=== PATIENT | female | born 1945 | race Caucasian/White ===

== ENCOUNTER → 2016-06-09 | Outpatient (CLI) | payer OTHER ==
--- NOTE | 2016-06-09 15:56 | MAMMOGRAPHY REPORT ---
BILATERAL DIGITAL SCREENING MAMMOGRAM WITH CAD: 06/09/2016 CLINICAL HISTORY: Routine screening. Patient has no complaints. TECHNIQUE: Bilateral CC, MLO, repeat left MLO and exaggerated lateral left CC views were obtained. Current study was also evaluated with a Computer Aided Detection (CAD) system. COMPARISON: Comparison is made to exams dated: 06/07/2015 mammogram, 06/05/2014 mammogram, 06/01/2013 mammogram, 05/31/2012 mammogram, 05/29/2011 mammogram, and 05/27/2010 mammogram - [facility]. BREAST COMPOSITION: There are scattered areas of fibroglandular density in both breasts. FINDINGS: There is expected architectural distortion and dystrophic calcification in the lower inner anterior left breast, at the site of prior benign excisional biopsy. There are scattered coarse an d round microcalcifications bilaterally. No new suspicious mass, architectural distortion or cluste r of suspicious microcalcifications is seen. IMPRESSION: ACR BI-RADS CATEGORY 1: NEGATIVE There is no mammographic evidence of malignancy. A 1 year screening mammogram is recommended. The p atient will receive written notification of the results. Approximately 10% of breast cancers are not detected with mammography. A negative mammographic repor t should not delay biopsy if a clinically suggestive mass is present. Luz Barnard M.D. ay/:06/09/2016 15:47:33 Mold Tooler: Sylvia WYATT(R)(M)(BD), [facility] letter sent: Normal 1/2 BI-RADS Code: ACR BI-RADS Category 1: Negative
== END | disposition home or self-care (01) ==
LOC: C.MAMM 09:48
PROVIDERS: ATTEND Family Medicine
DX: Z12.31 Encounter for screening mammogram for malignant neoplasm of breast (principal)

== ENCOUNTER → 2017-06-10 | Outpatient (CLI) | payer OTHER ==
--- NOTE | 2017-06-10 15:44 | MAMMOGRAPHY REPORT ---
BILATERAL DIGITAL SCREENING MAMMOGRAM TOMOSYNTHESIS WITH CAD: 06/10/2017 CLINICAL HISTORY: Routine screening. Patient has no complaints. TECHNIQUE: Breast tomosynthesis in addition to standard 2D mammography was performed. Current study was also evaluated with a Computer Aided Detection (CAD) system. COMPARISON: Comparison is made to exams dated: 06/09/2016 mammogram, 06/07/2015 mammogram, 06/05/2014 ma mmogram, 06/01/2013 mammogram, 05/31/2012 mammogram, and 05/29/2011 mammogram - [facility]. BREAST COMPOSITION: There are scattered areas of fibroglandular density in both breasts. FINDINGS: There is a possible area of architectural distortion in the upper outer middle one third o f the right breast, approximately 11:00 to 12:00 axis, for which additional spot compression tomosynt hesis views and possible ultrasound are recommended. There is a 10 mm focal asymmetry in the lower i nner anterior right breast, for which additional spot compression tomosynthesis views and possible ul trasound are recommended. No other suspicious mass, architectural distortion or cluster of microcalcifications is seen bilatera lly. IMPRESSION: ACR BI-RADS CATEGORY 0: INCOMPLETE EVALUATION: NEED ADDITIONAL IMAGING EVALUATION The possible area of architectural distortion in the upper outer middle one third of the right breast , and 10 mm focal asymmetry in the lower inner anterior right breast need additional imaging evaluati on. The patient will be called to schedule an appointment. Approximately 10% of breast cancers are not detected with mammography. A negative mammographic report should not delay biopsy if a clinically suggestive mass is present. Luz Barnard M.D. ay/:06/10/2017 10:57:38 Mig Tig Welder: Sylvia WYATT(Alethea)(Sanam)(BD), [facility] letter sent: Addl Imaging 0 BI-RADS Code: ACR BI-RADS Category 0: Incomplete Evaluation: Need Additional Imaging Evaluation
== END | disposition home or self-care (01) ==
LOC: C.MAMM 10:02
PROVIDERS: ATTEND Family Medicine
DX: N64.89 Other specified disorders of breast (principal)

== ENCOUNTER → 2017-06-19 | Outpatient (CLI) | payer OTHER ==
--- NOTE | 2017-06-22 07:45 | MAMMOGRAPHY REPORT ---
UNILATERAL RIGHT DIGITAL DIAGNOSTIC MAMMOGRAM TOMOSYNTHESIS AND TARGETED RIGHT ULTRASOUND: 06/19/2017 CLINICAL HISTORY: Callback from screening mammogram for right breast architectural distortion and rig ht breast asymmetry. TECHNIQUE: Breast tomosynthesis in addition to standard 2D mammography was performed. Spot compress ion right CC and MLO 2D and tomosynthesis images were obtained. COMPARISON: Comparison is made to exams dated: 06/10/2017 mammogram, 06/09/2016 mammogram, 06/07/2015 [facility] mogram, 06/05/2014 mammogram, 06/01/2013 mammogram, and 05/31/2012 mammogram - [facility]. BREAST COMPOSITION: There are scattered areas of fibroglandular density in the right breast. FINDINGS: Spot compression views demonstrate an ill-defined focal asymmetry measuring approximately 1 5 mm in the right lower inner quadrant anteriorly. Additionally, there is a small focal area of pers istent architectural distortion within the right lateral breast seen on the CC tomosynthesis images, likely projecting superiorly on the MLO view. This is ill-defined and therefore difficult to measure but measures approximately 17 mm. Targeted ultrasound was performed of the area of the focal asymmetry in the right lower inner quadran t. In the right 5:00 periareolar breast, there is a mixed echogenicity ill-defined superficially loc ated mass which is ill-defined and therefore difficult to measure but measures approximately 9 x 9 x 19 mm. The finding is predominantly hyperechoic with a few internal hypoechoic portions seen. This corresponds with the mammographic focal asymmetry, and has mammographic and sonographic features of p ossible fat necrosis. However, the patient denies any known trauma to the region. Targeted ultrasou nd was also performed of the right upper outer quadrant in the region of the focal area of architectu ral distortion, which shows no clear sonographic correlate for the distortion. IMPRESSION: ACR BI-RADS CATEGORY 4: SUSPICIOUS, TARGETED ULTRASOUND ACR BI-RADS CATEGORY 4: SUSPICIO US 1. Superficial mixed echogenicity 19 mm mass in the right 5:00 periareolar breast, which corresponds with an ill-defined mammographic focal asymmetry. The area has mammographic and sonographic feature s of possible fat necrosis, however, the patient denies any known trauma to the region. Therefore, t he finding is indeterminate and ultrasound-guided core needle biopsy is recommended for further evalu ation. 2. Small focal area of persistent architectural distortion in the right lateral breast mammographica lly, without a corresponding sonographic abnormality evident. The finding is indeterminate and may r epresent a radial scar although malignancy is not completely excluded. Recommend tomosynthesis guide d stereotactic biopsy for further evaluation. A phone call was made to the physician's office to confirm faxed results were received. The patient has been verbally notified of the results. She tentatively scheduled the biopsies before leaving the department. Approximately 10% of breast cancers are not detected with mammography. A negative mammographic report should not delay biopsy if a clinically suggestive mass is present. Myriam Thakkar M.D. ah/:06/19/2017 15:01:28 Director Digital Marketing: Kailee Moncada, [facility] letter sent: Abnormal 4/5 BI-RADS Code: ACR BI-RADS Category 4: Suspicious Ultrasound BI-RADS: ACR BI-RADS Category 4: Suspici ous
== END | disposition home or self-care (01) ==
LOC: C.MAMM 13:38
PROVIDERS: ATTEND Family Medicine
DX: R92.8 Other abnormal and inconclusive findings on diagnostic imaging of breast (principal); N63.10 Unspecified lump in the right breast, unspecified quadrant

== ENCOUNTER → 2017-07-01 | Outpatient (CLI) | payer OTHER ==
--- NOTE | 2017-07-01 09:11 | Discharge Instructions ---
Discharge Instructions Procedure Procedure Date: July 01, 2017. Reason for visit: Right Distortion, Right Asymmetry. Discharge Discharge Date: July 01, 2017. Discharge Diagnosis: status post breast biopsies Instructions Activity Recommendations: Additional Limitations (see below) Return to School/Work: no limitations Recommended Home Diet: No Limitations Provider Instructions: ACTIVITY RECOMMENDATIONS: * No lifting, pushing, pulling or exercising the affected side for three days. RETURN TO SCHOOL/WORK: * You may return to work/school after the procedure, but do not perform any strenuous activities for 24 to 48 hours. MEDICATIONS: * Tylenol (two 325 mg) every four to six hours if needed for mild pain (if not allergic to Tylenol). DIET: * Resume previous diet. SPECIAL CARE INSTRUCTIONS: * Keep biopsy site dry for 24 hours. May shower after 24 hours, but do not soak (bathe) incision. * May remove Tegaderm (plastic patch) tomorrow AFTER showering. * Leave the steri-strips on for one week. Allow the steri-strips to fall off by themselves. If not off after one week, you may remove them. You may place a Bandaid crosswise over the strips, if desired. * Apply ice 10 minutes on and 10 minutes off as needed. * Wear a bra at bedtime to sleep more comfortably for 2-3 days. * Your referring physician should have the results after approximately 5 to 7 business days. * Call for unusual bleeding, fever, drainage, etc or if you have any questions call during normal business hours or after hours call Dr Thakkar, . FOLLOW UP VISIT: Follow-up with Referring Physician as scheduled. Allergies Coded Allergies: Adhesives (Verified Allergy, Unknown, BANDAIDS LEAVE RED KEYA, 12/31/10) Codeine (Verified Allergy, Unknown, 12/31/10) Erythromycin (Verified Allergy, Unknown, 12/31/10) Penicillins (Verified Allergy, Unknown, AMOXICILLIN, 12/31/10) Propoxyphene (Verified Allergy, Unknown, 12/31/10) Tetracycline (Verified Allergy, Unknown, ., 12/31/10) Uncoded Allergies: DARVOL (Allergy, Unknown, ., 12/31/10) Tien Louis Recommendations: Call your doctor if: * Temperature above 101 degrees * Pain not relieved by pain medicine ordered * There is increased drainage or redness from any incision * You have any unanswered questions or concerns. Your Doctors Instructions noted above were prepared by provider Myriam Thakkar. Patient Signature Section: Patient Instructions Signature Page Marcy Valles Patient (or Guardian) Signature/Date: I have read and understand the instructions given to me by my caregivers. Caregiver/RN/Doctor Signature/Date: The above-named patient and/or guardian has received patient instructions on this date. + Original Patient Signature Page (only) stays with chart. Please make copy for patient.
--- NOTE | 2017-07-01 14:20 | MAMMOGRAPHY REPORT ---
STEREOTACTIC GUIDED BIOPSY RIGHT BREAST: 07/01/2017 CLINICAL HISTORY: Focal architectural distortion in the right lateral breast. PATIENT CONSENT: The procedure, risks, benefits, and alternatives of stereotactic biopsy with clip pl acement were discussed with the patient, and verbal and written consent was obtained. A timeout was performed immediately prior to the procedure. PROCEDURE DESCRIPTION: With tomosynthesis stereotactic guidance, aseptic technique, and lidocaine as a local anesthetic (1% lidocaine to anesthetize the skin and 1% lidocaine with epinephrine to anesthe tize the deeper tissues), the focal architectural distortion in the right lateral breast was sampled multiple times with a 9-gauge vacuum-assisted biopsy needle (prettysecrets). The path of approach was craniocaudal. A dumbbell-shaped metallic marker clip was placed at the biopsy site. This was confir med on postprocedure mammograms. Direct pressure was applied at the biopsy site and hemostasis was r eadily achieved. The patient tolerated the procedure without complication. She was given wound care instructions. COMPARISON: Comparison is made to exams dated: 06/19/2017 ultrasound, 06/19/2017 mammogram, 06/10/2017 m ammogram, 06/09/2016 mammogram, 06/07/2015 mammogram, and 06/05/2014 mammogram - [facility]. IMPRESSION: STEREOTACTIC GUIDED BIOPSY Tomosynthesis stereotactic biopsy of focal architectural distortion in the right lateral breast, with clip placement. The patient will receive pathology results from her referring provider. Myriam Thakkar M.D. /:07/01/2017 09:49:34 Line Construction Engineer: Vivian CHIRINOSR)(M), [facility]
--- NOTE | 2017-07-01 14:20 | MAMMOGRAPHY REPORT ---
ULTRASOUND GUIDED BIOPSY RIGHT BREAST: 07/01/2017 CLINICAL HISTORY: Mixed echogenicity mass in the right 5:00 periareolar breast. PATIENT CONSENT: The procedure, risks and benefits were discussed with the patient and informed writt en consent was obtained. A timeout was performed immediately prior to the procedure. PROCEDURE DESCRIPTION: With ultrasound guidance, aseptic technique, and lidocaine as the local anesth etic (1% lidocaine to anesthetize the skin and 1% lidocaine with epinephrine to anesthetize the deepe r tissues), the mixed echogenicity mass in the right 5:00 periareolar breast was sampled 4 times with a 14-gauge Achieve biopsy needle. Immediately thereafter, with ultrasound guidance, aseptic techni que, and lidocaine as the local anesthetic, a metallic localizer clip was placed centrally in the mas s. At the biopsy site. Direct pressure was applied to the site immediately post procedure and hemos tasis was achieved. Postprocedure unilateral mammograms were performed to confirm clip placement. T he patient tolerated the procedure without complication. She was given wound care instructions. The specimens were sent to pathology for analysis. COMPARISON: Comparison is made to exams dated: 07/01/2017 stereotactic biopsy, 06/19/2017 ultrasound, 06/19/2017 mammogram, 06/09/2016 mammogram, and 06/07/2015 mammogram - [facility]. IMPRESSION: ULTRASOUND GUIDED BIOPSY Ultrasound-guided biopsy of the right 5:00 breast mass, with clip placement. The patient will receiv e pathology results from her referring provider. Myriam Thakkar M.D. ah/:07/01/2017 09:52:46 Branch Mechanic: Vivian AMBROCIO)(M), [facility]
--- NOTE | 2017-07-01 14:24 | MAMMOGRAPHY REPORT ---
UNILATERAL RIGHT DIGITAL DIAGNOSTIC MAMMOGRAM TOMOSYNTHESIS: 07/01/2017 CLINICAL HISTORY: Status post right breast biopsies. TECHNIQUE: Breast tomosynthesis in addition to standard 2D mammography was performed. Postprocedura l right CC and ML tomosynthesis images were obtained. COMPARISON: Comparison is made to exams dated: 07/01/2017 stereotactic biopsy, 06/19/2017 ultrasound, 06/19/2017 mammogram, 06/10/2017 mammogram, 06/09/2016 mammogram, and 06/07/2015 mammogram - [facility]. BREAST COMPOSITION: There are scattered areas of fibroglandular density in the right breast. FINDINGS: A new dumbbell-shaped biopsy marker clip is seen at the site of the biopsied architectural distortion in the right upper outer quadrant. A new ribbon-shaped biopsy marker clip is seen at the site of the biopsied mass in the right 5:00 breast. No significant postbiopsy hematoma is seen. IMPRESSION: POST PROCEDURE IMAGING FOR MARKER PLACEMENT New biopsy marker clips status post right breast biopsies. Pathology results are pending. Approximately 10% of breast cancers are not detected with mammography. A negative mammographic report should not delay biopsy if a clinically suggestive mass is present. Myriam Thakkar M.D. /:07/01/2017 09:54:38 Brineyard Supervisor: Sindy AMBROCIO)(Sanam), [facility] BI-RADS Code: Post Procedure Imaging For Marker Placement
== END | disposition home or self-care (01) ==
LOC: C.MAMM 08:20
PROVIDERS: ATTEND Family Medicine
DX: N60.31 Fibrosclerosis of right breast (principal); N64.1 Fat necrosis of breast; N61.0 Mastitis without abscess; R92.8 Other abnormal and inconclusive findings on diagnostic imaging of breast